=== PATIENT | male | born 1955 | race Caucasian/White ===

== ENCOUNTER 2023-02-28 05:49 | Day surgery (SDC) | payer OTHER, SELFPAY ==
[2023-01-10 13:33] VITALS: BMI 32.8
[2023-02-28 06:13] VITALS: BP 117/69; PULSE 55; RESP 16; TEMP 37; O2SAT 97; BMI 31.6
[2023-02-28] MEDS: LACTATED RINGERS 1,000 ML 150 ML IV CONT (06:31)
--- NOTE | 2023-02-28 07:03 | PM.HPGS ---
History of Present Illness History of Present Illness Consent: Risks, benefits, and alternatives have been discussed and questions answered. Patient agrees to proceed with procedure. Chief complaint: Neoplasm Screening Narrative: Silvestre Lyons Jr. is a 67 year old male presents for screening colonoscopy. Patient reports that his weight appetite and bowel movements are normal. Patient denies abdominal pain. He has had no bleeding. Family history noncontributory. Colonoscopy in 2009 revealed only hemorrhoids. Review of Systems Review of Systems: Review of systems is noncontributory. [facility] Past Medical History Medical History Essential (primary) hypertension Generalized anxiety disorder Hyperlipidemia, unspecified Nicotine dependence, unspecified, uncomplicated Social History Social History (Updated 01/02/23 @ 16:02 by Esme Redding MA) Smoking status: Current every day smoker Tobacco type: cigarettes Alcohol intake: never Substance use: never Substance use type: does not use Lack of Transportation: No Lack of Food: Never True Current Housing: I Have Housing Concerned About Future Housing: No Difficulty Paying Gas/Electric Bills: No Difficulty Paying for Meds: No Currently Unemployed: No Education: High School Diploma/GED Difficulty w/ Childcare or Family Care: No Living arrangements: with family Occupation/Education: occupation Gender identity (if verbalized by the patient): Male Sexual Orientation (if Verbalized by the Patient): Straight or Heterosexual Spiritual care concerns: No Meds Home Medications and Allergies Home Medications Medication Instructions Recorded Confirmed Type hetjbolh-apetvdvp-mkvvu acid 400 1 tablet PO DAILY 07/04/22 02/28/23 History mcg-vit K 20 mcg-lycop 300 mcg tablet (One-A-Day Men's Multivitamin) omega 8-lbd-oni-fish oil 300 1 cap PO DAILY 07/04/22 02/28/23 History mg-1,000 mg capsule (Fish Oil) nadolol 40 mg tablet 40 mg PO DAILY #90 tabs 02/07/23 02/28/23 Rx rosuvastatin 10 mg tablet 10 mg PO DAILY #90 tabs 02/07/23 02/28/23 Rx escitalopram oxalate 10 mg tablet 10 mg PO DAILY #30 tabs 02/26/23 02/28/23 Rx Allergies Allergy/AdvReac Type Severity Reaction Status Date / Time No Known Allergies Allergy Mild Verified 02/28/23 06:06 Vital Signs Vital Signs - 24 hr 02/28/23 06:13 Temperature 98.6 F Pulse Rate 55 L Respiratory Rate 16 Blood Pressure 117/69 Pulse Oximetry 97 Oxygen Delivery Room Air Exam Narrative: Physical exam reveals patient to be alert. Vital signs stable. HEENT exam is unremarkable. Patient is anicteric. Lungs are clear to auscultation and to percussion. Heart is without murmur or extra sounds. Abdomen bowel sounds are present soft nontender with no organomegaly. Digital external rectal exam normal. Assessment and Plan Assessment and plan (1) Encounter for screening colonoscopy: Code(s): Z12.11 - Encounter for screening for malignant neoplasm of colon Status: Acute Assessment and Plan: Patient presents for screening colonoscopy. He appears to be at average risk for colon polyps.
--- NOTE | 2023-02-28 07:22 | WPDANESEPPF ---
Anes - Initial Pre Proc Eval Procedure: Operation Date: 02/28/23 07:30 Proposed Procedures p Screening Colonoscopy - Chidi Berry MD Date/Time: 02/28/23 07:22 Surgeon: Chidi Berry MD Pre Op Diagnosis: Neoplasm Screening Patient Data Age: 67 Gender: M Height: 1.85 m Weight: 109 kg Last Vital Signs Temp 37.0 C 02/28/23 06:13 Pulse 55 L 02/28/23 06:13 Resp 16 02/28/23 06:13 BP 117/69 02/28/23 06:13 Pulse Ox 97 02/28/23 06:13 O2 Del Method Room Air 02/28/23 06:13 Allergies Allergy/AdvReac Type Severity Reaction Status Date / Time No Known Allergies Allergy Mild Verified 02/28/23 06:06 Home Medications Medication Instructions Recorded Confirmed Type pahsqfpw-unkosrtw-xiodx acid 400 1 tablet PO DAILY 07/04/22 02/28/23 History mcg-vit K 20 mcg-lycop 300 mcg tablet (One-A-Day Men's Multivitamin) omega 4-eza-hnb-fish oil 300 1 cap PO DAILY 07/04/22 02/28/23 History mg-1,000 mg capsule (Fish Oil) nadolol 40 mg tablet 40 mg PO DAILY #90 tabs 02/07/23 02/28/23 Rx rosuvastatin 10 mg tablet 10 mg PO DAILY #90 tabs 02/07/23 02/28/23 Rx escitalopram oxalate 10 mg tablet 10 mg PO DAILY #30 tabs 02/26/23 02/28/23 Rx Patient hx anesthesia problems: none Family hx anesthesia problems: none Results Review: All pre-operative results and documents have been reviewed as part of the pre-operative evaluation. [facility] Past Medical History Medical History Essential (primary) hypertension Generalized anxiety disorder Hyperlipidemia, unspecified Nicotine dependence, unspecified, uncomplicated Surgical History Surgical History (Updated 02/28/23 @ 07:25 by Mike Agarwal MD) H/O colonoscopy History of appendectomy Social History Social History (Updated 01/02/23 @ 16:02 by Esme Redding MA) Smoking status: Current every day smoker Tobacco type: cigarettes Alcohol intake: never Substance use: never Substance use type: does not use Lack of Transportation: No Lack of Food: Never True Current Housing: I Have Housing Concerned About Future Housing: No Difficulty Paying Gas/Electric Bills: No Difficulty Paying for Meds: No Currently Unemployed: No Education: High School Diploma/GED Difficulty w/ Childcare or Family Care: No Living arrangements: with family Occupation/Education: occupation Gender identity (if verbalized by the patient): Male Sexual Orientation (if Verbalized by the Patient): Straight or Heterosexual Spiritual care concerns: No Anes - Eval Final PreProcedure Day of Procedure 02/28/23 07:22 Patient weight: obese Heart: regular rate and rhythm Lungs: clear to auscultation Airway: Mallampati scale class II Neurological: alert and oriented Last oral intake: >/= 8 hours ASA classification: III Emergent: no Anesthetic plan: proceed Results Review: All pre-operative results and documents have been reviewed as part of the pre-operative evaluation. Informed Consent: The patient's anesthetic plan and its attendant risks and benefits were discussed with the patient/family/POA. Questions were solicited and answers provided to the satisfaction of the patient/family/POA.
[2023-02-28 07:48] VITALS: BP 93/55; PULSE 56; RESP 14; O2SAT 97
[2023-02-28 07:58] VITALS: BP 108/60; PULSE 54; RESP 14; O2SAT 97
--- NOTE | 2023-02-28 08:02 | WPDANESPN ---
Anes - Prog Note Post-Op Date/Time: 02/28/23 08:02 Cardiovascular status: normal Respiratory status: normal Airway patency: baseline Mental status: baseline Post-Op hydration status: normal Vital Signs: Last Vital Signs Temp 37.0 C 02/28/23 06:13 Pulse 54 L 02/28/23 07:58 Resp 14 02/28/23 07:58 BP 108/60 02/28/23 07:58 Pulse Ox 97 02/28/23 07:58 O2 Del Method Room Air 02/28/23 07:58 Pain Score (VAS): 0/10 I/O: Intake & Output 02/27/23 02/28/23 02/28/23 23:59 07:59 15:59 Intake Total 500 Balance 500 Patient Feedback: Patient satisfied with anesthetic care.
[2023-02-28 08:08] VITALS: BP 116/69; PULSE 52; RESP 15; O2SAT 98
== END 2023-02-28 08:19 | disposition home or self-care (01) ==
PROVIDERS: PCP Family Medicine; Visit Provider Internal Medicine Gastroenterology
PROC: 0DJD8ZZ Inspection of Lower Intestinal Tract, Via Natural or Artificial Opening Endoscopic (ICD-10-PCS; CPT 45378; principal; 2023-02-28 07:30)
DX: Z12.11 Encounter for screening for malignant neoplasm of colon (principal); K64.8 Other hemorrhoids
CPT/HCPCS: 45378